=== PATIENT | female | born 1960 | race African-American/Black ===

== ENCOUNTER 2024-04-25 12:38 | Inpatient (IN) | payer OTHER ==
[2024-04-25] MEDS ORDERED: CEFAZOLIN 2 GM VIAL ONE (12:41)
[2024-04-25] MEDS ORDERED: Morphine 4 MG/ML VIAL ONE ×2 (12:44→13:04)
[2024-04-25] MEDS ORDERED: Famotidine/PF 20 mg/2ml Vial ONE ×2 (13:24→13:41)
[2024-04-25 13:28] LABS: #Basophils 0.03 10x3/uL (0.0-0.2); %Basophils 0.4 % (0.0-1.0); %Eosinophils 2.3 % (0.0-10.0); %Lymphocytes 22.5 % (21.0-51.0); %Monocytes 4.6 % (0.0-10.0); %Neutrophils 69.9 % (42.0-75.0); Hematocrit 36.9 % (36.0-47.0); Hemoglobin 12.2 g/dL (12.0-16.0); Mean Corpuscular HGB CONC 33.1 g/dL (32.0-36.0); Mean Corpuscular Volume 87.6 fL (78.0-98.0); Mean Platelet Volume 11.5 fL (7.4-10.4); Platelet Count 238 10x3/uL (130-400); RBC Distribution Width 14.7 % (11.5-14.5); Red Blood Cell (RBC) Count 4.21 mill/uL (4.20-5.40)
[2024-04-25] MEDS ORDERED: fentaNYL 50 mcg/mL 1 mL Vial ONE ×5 (13:35→18:13)
[2024-04-25] MEDS ORDERED: Lidocaine 2% PF 5 ML VIAL ONE (13:35)
[2024-04-25] MEDS ORDERED: Rocuronium Bromide 10 MG/ML (10ML VIAL) ONE (13:35)
[2024-04-25] MEDS ORDERED: PROPOFOL 20 ML ONE (13:35)
[2024-04-25] MEDS ORDERED: Bicitra 30 ML UDCUP ONE (13:41)
[2024-04-25] MEDS ORDERED: Ondansetron ODT 4 MG TAB PO PRN (13:43)
[2024-04-25] MEDS ORDERED: hydrALAZINE 20 MG/ML VIAL SLOW IVP PRN (13:43)
[2024-04-25] MEDS ORDERED: Glucagon 1 MG/ML KIT IM PRN (13:43)
[2024-04-25] MEDS ORDERED: Dextrose 50% Abboject 50 ML SYRINGE SLOW IVP PRN (13:43)
[2024-04-25] MEDS ORDERED: Ondansetron PF 4 MG/2 ML Vial IVP PRN (13:43)
[2024-04-25] MEDS ORDERED: Dextrose 5% in Water 1,000 ML IV PRN (13:43)
[2024-04-25] MEDS ORDERED: Morphine 2 MG/ML VIAL SLOW IVP PRN (13:43)
[2024-04-25 13:51] LABS: ALT (SGPT) 5 U/L (8-55); AST (SGOT) 14 U/L (5-34); Albumin 3.5 g/dL (3.4-4.8); Alkaline Phosphatase 83 U/L (40-110); Anion Gap 15 mmol/L (10-20); BUN (Urea Nitrogen) 26 mg/dL (9.8-20.1); Bilirubin, Total 0.4 mg/dL (0.2-1.2); Calc. Creatinine Clearance 0 mL/min (70-130); Carbon Dioxide 22 mmol/L (23-31); Chloride 112 mmol/L (98-107); Estimated GFR 49; Globulin 3.4 g/dL (2.4-3.5); Glucose 96 mg/dL (80-115); Potassium 3.9 mmol/L (3.5-5.1); Protein, Total 6.9 g/dL (5.8-8.1); Sodium 145 mmol/L (136-145)
[2024-04-25] MEDS ORDERED: SUCCINYLCHOLINE/SOD CL,ISO/PF 200 MG/10 ML SYRINGE FS ONE (13:56)
[2024-04-25 13:57] LABS: Troponin I Less than 0.010 ng/mL (< 0.028)
[2024-04-25] MEDS ORDERED: CEFAZOLIN 1 GM VIAL ONE (14:25)
[2024-04-25] MEDS ORDERED: HYDROmorphone 2 MG/ML VIAL SLOW IVP PRN (14:45)
[2024-04-25] MEDS ORDERED: Ondansetron HCl/PF 4 MG/2 ML Vial IVP PRN (14:45)
[2024-04-25] MEDS ORDERED: Promethazine HCl 25 MG/ML VIAL IM PRN (14:45)
[2024-04-25] MEDS ORDERED: Meperidine HCl/PF 25 MG/ML VIAL SLOW IVP PRN (14:45)
[2024-04-25] MEDS ORDERED: hydrALAZINE 20 MG/ML VIAL ONE (14:47)
[2024-04-25] MEDS ORDERED: SUGAMMADEX SODIUM 200 MG/2 ML VIAL ONE (14:51)
[2024-04-25] MEDS ORDERED: PHENYLEPHRINE-NS 100 MCG/ML 10 ML SYRINGE ONE (15:12)
[2024-04-25] MEDS ORDERED: Vancomycin 1 GM VIAL ONE (15:26)
[2024-04-25] MEDS ORDERED: Ketorolac Tromethamine 30 MG (1 mL) VIAL ONE (15:45)
[2024-04-25] MEDS ORDERED: Ondansetron PF 4 MG/2 ML Vial ONE (17:01)
[2024-04-25 18:40] VITALS: BMI 28.8
[2024-04-25] MEDS: TETANUS, DIPHTHERIA TOX,ADULT (TDVAX) 0.5 ML VIAL IM ONE (20:53)
[2024-04-25] MEDS: traMADol HCl 50 MG TAB PO PRN (21:02)
[2024-04-25] MEDS: Famotidine 20 MG TAB PO SCH (21:02)
[2024-04-25] MEDS: CEFAZOLIN 2 GM in Sodium Chloride 0.9% 100 ML IVPB SCH (21:03)
[2024-04-25] MEDS: Methocarbamol 500 MG TAB PO PRN (21:08)
[2024-04-25] MEDS: Acetaminophen 325 MG TAB PO PRN (21:20)
[2024-04-25] MEDS: Promethazine HCl 25 MG/ML VIAL IM PRN (22:05)
[2024-04-26 06:01] LABS: #Basophils Less than 0.03 10x3/uL (0.0-0.2); %Basophils 0.2 % (0.0-1.0); %Eosinophils 0.2 % (0.0-10.0); %Lymphocytes 12.9 % (21.0-51.0); %Monocytes 4.5 % (0.0-10.0); %Neutrophils 81.8 % (42.0-75.0); Hemoglobin 9.5 g/dL (12.0-16.0); Mean Corpuscular HGB CONC 32.8 g/dL (32.0-36.0); Mean Corpuscular Hemoglobin 29.5 pg (27.0-31.0); Mean Corpuscular Volume 90.1 fL (78.0-98.0); Mean Platelet Volume 11.9 fL (7.4-10.4); Platelet Count 230 10x3/uL (130-400); RBC Distribution Width 15.2 % (11.5-14.5); Red Blood Cell (RBC) Count 3.22 mill/uL (4.20-5.40)
[2024-04-26 06:13] LABS: Anion Gap 13 mmol/L (10-20); BUN (Urea Nitrogen) 22 mg/dL (9.8-20.1); Calc. Creatinine Clearance 85 mL/min (70-130); Carbon Dioxide 22 mmol/L (23-31); Chloride 112 mmol/L (98-107); Estimated GFR 56; Glucose 103 mg/dL (80-115); Potassium 4.2 mmol/L (3.5-5.1); Sodium 143 mmol/L (136-145)
[2024-04-26] MEDS: Heparin 5,000 UNITS/ML VIAL SC SCH (09:35)
[2024-04-27] MEDS: oxyCODONE/Acetaminophen 5 mg/325 mg Tablet PO PRN (05:23)
[2024-04-27 15:31] VITALS: TEMP 98.1
[2024-04-27 17:43] VITALS: BP 148/80
== END 2024-04-27 18:35 | disposition home or self-care (01) | DRG 494 ==
LOC: ERS 12:38 → SDC/OP 13:35 → SURG A 18:18
PROVIDERS: ADMIT Surgery; ATTEND Surgery
PROC: 0QSG06Z Reposition Right Tibia with Intramedullary Internal Fixation Device, Open Approach (ICD-10-PCS; principal; 2024-04-25)
DX: S82.201B Unspecified fracture of shaft of right tibia, initial encounter for open fracture type I or II (principal); S82.401B Unspecified fracture of shaft of right fibula, initial encounter for open fracture type I or II; I10 Essential (primary) hypertension; Z88.8 Allergy status to other drugs, medicaments and biological substances; Z88.5 Allergy status to narcotic agent; Z79.82 Long term (current) use of aspirin; Z79.899 Other long term (current) drug therapy
CPT/HCPCS: 27752; 36415; 71045; 80048; 80053; 84484; 85025; 96365; 96375; C1713; G0390; J0360; J0690; J1644; J1885; J2001; J2272; J2405; J2550; J2704; J3010; J3370; J3490

== ENCOUNTER 2024-04-27 19:12 | Emergency (ER) | payer OTHER ==
[~2024-04-27 19:12] MED LIST: Iopamidol-370 76% 500 ML MDV (1 ML CHARGE) ONE
[2024-04-27 19:50] LABS: #Basophils Less than 0.03 10x3/uL (0.0-0.2); %Basophils 0.2 % (0.0-1.0); %Eosinophils 1.1 % (0.0-10.0); %Lymphocytes 24.6 % (21.0-51.0); %Monocytes 5.9 % (0.0-10.0); %Neutrophils 67.5 % (42.0-75.0); Hematocrit 22.9 % (36.0-47.0); Hemoglobin 7.5 g/dL (12.0-16.0); Mean Corpuscular HGB CONC 32.8 g/dL (32.0-36.0); Mean Corpuscular Hemoglobin 30.1 pg (27.0-31.0); Mean Platelet Volume 11.2 fL (7.4-10.4); Platelet Count 193 10x3/uL (130-400); RBC Distribution Width 15.2 % (11.5-14.5); Red Blood Cell (RBC) Count 2.49 mill/uL (4.20-5.40)
[2024-04-27 20:19] LABS: ALT (SGPT) Less than 5 U/L (8-55); AST (SGOT) 16 U/L (5-34); Albumin 2.6 g/dL (3.4-4.8); Alkaline Phosphatase 58 U/L (40-110); Anion Gap 14 mmol/L (10-20); BUN (Urea Nitrogen) 16 mg/dL (9.8-20.1); Bilirubin, Total 0.3 mg/dL (0.2-1.2); Calc. Creatinine Clearance 0 mL/min (70-130); Calcium 7.8 mg/dL (7.8-10.44); Carbon Dioxide 19 mmol/L (23-31); Chloride 107 mmol/L (98-107); Estimated GFR 44; Globulin 2.9 g/dL (2.4-3.5); Glucose 304 mg/dL (80-115); Potassium 3.4 mmol/L (3.5-5.1); Protein, Total 5.5 g/dL (5.8-8.1); Sodium 137 mmol/L (136-145)
[2024-04-27 20:30] LABS: Troponin I 0.465 ng/mL (< 0.028)
[2024-04-27] MEDS ORDERED: Heparin 5,000 UNITS/ML VIAL ONE (20:52)
[2024-04-27] MEDS ORDERED: Heparin 25,000 units/D5W 500 ML ONE (20:53)
[2024-04-27 21:11] LABS: INR-International Normal Ratio 1.2; Prothrombin Time 15.2 sec (12.0-14.7)
[2024-04-28 00:22] LABS: Influenza A by NAA Not Detected (NotDetected); Influenza B by NAA Not Detected (NotDetected); SARS-CoV-2 NAA Rapid Test Not Detected (NotDetected)
== END 2024-04-28 02:04 | disposition short-term general hospital (02) ==
LOC: ERS 19:12
DX: R55 Syncope and collapse (principal); D64.9 Anemia, unspecified; I95.9 Hypotension, unspecified; I26.99 Other pulmonary embolism without acute cor pulmonale; I10 Essential (primary) hypertension
CPT/HCPCS: 36430; 71275; 80053; 83880; 84484; 85025; 85610; 85730; 86850; 86900; 86901; 93005; 96374; J1644; P9016; Q9967